=== PATIENT | female | born 1990 | race Two or more races ===

== ENCOUNTER → 2017-08-05 | Outpatient (CLI) | payer BC | LOC: EDSTATUS 10:51 → GIMAGING 11:28 | PROVIDERS: ATTEND Family Medicine | DX: M54.5 Low back pain (principal) ==

== ENCOUNTER 2018-10-12 11:16 | Emergency (ER) | payer OTHER, BC ==
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
[2018-10-12 14:25] VITALS: BP 98/57
== END 2018-10-12 14:24 | disposition home or self-care (01) ==
LOC: EDUNIT#
DX: S16.1XXA Strain of muscle, fascia and tendon at neck level, initial encounter (principal); S20.211A Contusion of right front wall of thorax, initial encounter; V49.40XA Driver injured in collision with unspecified motor vehicles in traffic accident, initial encounter; Y92.410 Unspecified street and highway as the place of occurrence of the external cause; Y93.9 Activity, unspecified; Y99.9 Unspecified external cause status